=== PATIENT | female | born 1980 | race Two or more races ===

== ENCOUNTER 2024-02-23 20:07 | Emergency (ER) | payer OTHER ==
[2024-02-23 20:17] VITALS: BP 138/82; PULSE 88; RESP 18; TEMP 98.4; BMI 33.6
== END 2024-02-23 21:01 | disposition home or self-care (01) ==
LOC: JERFT 20:07 → JER 20:07 → JERFT 21:01
PROC: 0XQRXZZ Repair Left Middle Finger, External Approach (ICD-10-PCS; principal; 2024-02-23)
DX: S61.213A Laceration without foreign body of left middle finger without damage to nail, initial encounter (principal); W26.0XXA Contact with knife, initial encounter
CPT/HCPCS: 99283-25